=== PATIENT | male | born 1970 | race Two or more races ===

== ENCOUNTER 2019-01-20 20:57 | Inpatient (IN) | payer OTHER, MEDICAID ==
[~2019-01-20] VITALS: Ht 172.7 cm; Wt 68.0 kg
[2019-01-20 21:35] LABS: Basophils # (auto) 0 uL; Basophils % (auto) 0.6 % (0.0-2.0); Eosinophils # (auto) 0 uL; Eosinophils % (auto) 0.2 % (0.0-7.0); Hematocrit 41.1 % (41.0-53.0); Hemoglobin 12.8 g/dL (13.5-17.5); Lymphocytes % (auto) 15.3 % (10.0-50.0); Mean Corpuscular Hemoglobin 31.3 pg (28.0-32.0); Mean Corpuscular Hgb Conc. 31.1 g/dL (32.0-36.0); Mean Corpuscular Volume 100.9 fL (80.0-100.0); Monocytes # (auto) 0.6 uL; Monocytes % (auto) 8.5 % (0.0-12.0); Neutrophils # (auto) 5.1 uL; Neutrophils % (auto) 75.4 % (37.0-80.0); Platelet Count (auto) 322 10^3/uL (140-450); Red Blood Cells 4.08 10^6/uL (4.5-5.90); Red Cell Distribution Width 13.5 % (11.8-14.3); White Blood Cell 6.8 10^3/uL (4.4-10.8)
[2019-01-20 21:57] LABS: Calcium 10.1 mg/dL (8.5-10.1)
[2019-01-20 22:06] LABS: BUN/Creatinine Ratio 19.5; Bilirubin, Total 1.1 mg/dL (0.2-1.0); Total Protein 7.8 g/dL (6.4-8.2)
[2019-01-20 22:12] LABS: Potassium 5.7 mmol/L (3.5-5.1)
[2019-01-21] MEDS ORDERED: SODIUM CHLORIDE 0.9% 2,000 ML IV ONE (01:00)
[2019-01-21] MEDS ORDERED: InsuLIN REG 1unit/0.01ml Soln (100units/ml) IV ONE (01:00)
[2019-01-21 01:06] LABS: Urine Bacteria NONE SEEN /hpf (None Seen); Urine Blood Negative /uL (Negative); Urine Specific Gravity 1.019 (1.001-1.035); Urine WBC <1 /hpf (0 - 3)
[2019-01-21] MEDS ORDERED: LOPERAMIDE HCL 2 MG CAP PO ONE (03:15)
[2019-01-21] MEDS ORDERED: SODIUM BICARBONATE 8.4% INJ 50ML SYRINGE IV ONE (03:30)
[2019-01-21] MEDS ORDERED: SODIUM ZIRCONIUM CYCL 10 GM PAK PO ONE (03:30)
[2019-01-21] MEDS ORDERED: DEXTROSE (50%) 50ML SYRG IV PRN ×3 (03:30→06:15)
[2019-01-21] MEDS: SODIUM CHLORIDE 0.9% 1,000 ML IV SCH ×2 (03:38→05:25)
[2019-01-21] MEDS ORDERED: InsuLIN REG 1unit/0.01ml Soln (100units/ml) ONE (03:47)
[2019-01-21] MEDS: ACCU-CHEK COMFORT CURVE STRIP VI SCH ×2 (03:54→06:10)
[2019-01-21] MEDS ORDERED: InsuLIN R (HUMAN) 100 UNITS in SODIUM CHL 0.9% 99 ML IV SCH ×3 (04:00→07:00)
[2019-01-21] MEDS ORDERED: ALUM & MAG HYDROX-SIMETH LIQ(MAALOX) 30 ML PO ONE (04:15)
[2019-01-21] MEDS ORDERED: LIDOCAINE VISCOUS 2% 15ML UD PO ONE (04:30)
[2019-01-21] MEDS ORDERED: MORPHINE SULF INJ 2 MG/ML SYRINGE 1ML IV ONE (05:00)
[2019-01-21] MEDS ORDERED: ONDANSETRON HCL 4 MG/2 ML VIAL IV ONE (05:00)
[2019-01-21] MEDS ORDERED: MORPHINE SULF INJ 2 MG/ML SYRINGE 1ML IV PRN (05:30)
[2019-01-21] MEDS ORDERED: TEMAZEPAM 15 MG CAP PO PRN (05:30)
[2019-01-21] MEDS ORDERED: ACETAMINOPHEN 325 MG TAB PO PRN (05:30)
[2019-01-21] MEDS ORDERED: NITROGLYCERIN 0.4 MG SL TAB SL PRN (05:30)
[2019-01-21] MEDS ORDERED: ONDANSETRON HCL 4 MG/2 ML VIAL IV PRN (05:30)
[2019-01-21] MEDS ORDERED: HYDROcodone-ACET 5/325MG TAB PO PRN (05:30)
[2019-01-21] MEDS ORDERED: SODIUM CHLORIDE 0.9% 1,000 ML IV SCH ×3 (06:14→09:25)
[2019-01-21 06:54] VITALS: BP 116/64
[2019-01-21 06:56] LABS: Anion Gap 12 (5-15); BUN/Creatinine Ratio 21.1; Blood Urea Nitrogen 23 mg/dL (7-18); Calcium 7.1 mg/dL (8.5-10.1); Carbon Dioxide 23 mmol/L (21-32); Chloride 101 mmol/L (98-107); GFR African American 93 mL/min; GFR Non-African American 77 mL/min; Glucose 295 mg/dL (74-106); Potassium 4.1 mmol/L (3.5-5.1); Sodium 136 mmol/L (136-145)
[2019-01-21 11:05] LABS: Magnesium 2.7 mg/dL (1.6-2.6); Phosphorus 2.2 mg/dL (2.5-4.90)
[2019-01-21] MEDS ORDERED: SODIUM PHOSPHATES 24 MEQ in SODIUM CHL 0.9% 100 ML IV ONE (16:45)
--- NOTE | 2019-01-22 10:27 | NUR ---
I faxed clinical information to [facility] including ER notes, H&P, vitals, labs, xrays and medication list.
== END 2019-01-21 08:28 | disposition left against medical advice (07) | DRG 638 ==
LOC: EDBD 20:57 → ER 21:07 → TELE 21:08
PROVIDERS: ADMIT Nurse Practitioner; ATTEND Nurse Practitioner
DX: E11.10 Type 2 diabetes mellitus with ketoacidosis without coma (principal); E87.1 Hypo-osmolality and hyponatremia; F17.210 Nicotine dependence, cigarettes, uncomplicated; E87.5 Hyperkalemia; N28.9 Disorder of kidney and ureter, unspecified; Z53.21 Procedure and treatment not carried out due to patient leaving prior to being seen by health care provider; E86.0 Dehydration; Z90.49 Acquired absence of other specified parts of digestive tract; Z91.19 Patient's noncompliance with other medical treatment and regimen
CPT/HCPCS: 36415; 36600; 71045; 74018; 80048; 80053; 81001; 82010; 82805; 82962; 83036; 83690; 83735; 84100; 84132; 84484; 85025; 87045; 87899; 93005; 94761; 96361; 96365; 96375; G0378; J1815; J2405